=== PATIENT | male | born 2000 | race Caucasian/White ===

== ENCOUNTER 2023-03-09 12:48 | Outpatient (OUT) | payer BC, SELFPAY ==
--- NOTE | 2023-03-09 13:00 | RT_ITS ---
[facility] Test Date: 2023-03-09 Pat Name: Orlando Meier Department: Room: - Gender: Male Vending Machine Collector: Kendra Hays RRT : 2000 Requested By: Claudia Monk Order Number: [id number] Larissa MD: Misael Rodriguez Interpretive Statements Pulmonary function testing was completed according to ATS criteria. Findings were considered accurate and reproducible. Both pre- and post-bronchodilator values utilized for spirometry. Spirometry (based on pre-bronchodilator values): -FEV1/FVC: Low normal @ 73% -FEV1: Mildly reduced @ 80% -FVC: Normal @ 91% -There is a positive bronchodilator response in FEV1. Lung volumes by plethysmography: -RV: Increased @ 158% -TLC: Normal @ 109% Diffusion capacity: -DLCO: High normal @ 132% when corrected for Hb 15g/dL Flow-volume loop: -Mild obstructive pattern Impressions: -Spirometry trends towards a mild obstruction pattern. There is a positive bronchodilator response. An elevated RV suggests air trapping. The diffusion capacity is normal. Overall study trends towards mild asthma. Clinical correlation required. Electronically Signed On 03-13-2023 7:29:58 EST by Misael Rodriguez
[2023-03-09] MEDS: ALBUTEROL SULFATE 2.5 MG/3 ML VIAL NEB IH (13:40)
== END 2023-03-09 12:49 | disposition home or self-care (01) ==
LOC: CARD 12:48
PROVIDERS: PCP Internal Medicine; Visit Provider Nurse Practitioner Family
DX: R06.2 Wheezing (principal); Z86.16 Personal history of COVID-19; R07.89 Other chest pain
CPT/HCPCS: 36415; 85018; 94060; 94726; 94729

== ENCOUNTER 2023-08-12 12:00 | Emergency (ER) | payer BC, SELFPAY ==
[2023-08-12 12:04] VITALS: BP 148/81; PULSE 77; O2SAT 98; BMI 37.6
--- NOTE | 2023-08-12 12:09 | XR_ITS ---
The [address] [address] Patient Name: YENI DENNIS MRN: [id number] date: 2000 Sex: M Assigned Patient Location: ED.MAIN Current Patient Location: Accession/Order Number: [id number] Exam Date: 08/12/2023 12:15 Report Date: 08/12/2023 13:55 At the request of: NATHANAEL LOPEZ Procedure: XR ankle RT min 3V IMAGES REVIEWED: XR ankle RT min 3V COMPARISON: None available. CLINICAL INDICATION: fall FINDINGS/IMPRESSION: 1. No evidence of acute osseous abnormality of the right ankle. 2. Mild lateral ankle soft tissue swelling. 3. Trace degenerative change of the tibiotalar joint. 4. Trace enthesopathic change distal Achilles tendon insertion. Electronically authenticated by: BÁRBARA MEZA Date: 08/12/2023 13:55
[2023-08-12 12:11] VITALS: TEMP 36.5
--- NOTE | 2023-08-12 12:16 | ED.GENADUL1 ---
HPI HPI - General Adult General Chief complaint: Extremity Injury, Lower Stated complaint: LOWER EXTREMITY INJURY Time Seen by Provider: 08/12/23 12:04 Source: patient Mode of arrival: walk-in History of Present Illness HPI narrative: This is a healthy 23 here with a rash. He has noticed this about 3 days ago. He has been taking 50 mg of Benadryl every 12 hours and has not really getting better. He states that this rash moves around different places of his trunk torso and extremities. It is not painful, he has not been sick. He could not identify intake of any food or supplemental products that may have caused it. To his knowledge his parents do not have any allergies. He has not been on any antibiotics. He has not had any swelling in his mouth tongue or oral cavity. He has no wheezing or tightness in his chest. No headache fever or chills or other systemic symptoms he is otherwise healthy. Related Data Home Medications ?Medication ?Instructions ?Recorded ?Confirmed albuterol 90 mcg/actuation aerosol mcg inhalation 08/12/23 inhaler Allergies Allergy/AdvReac Type Severity Reaction Status Date / Time No Known Drug Allergies Allergy Verified 08/12/23 12:07 Opioid HPI Opioid Management Most Recent Opioid Data: No Data to Display Exam Narrative Exam Narrative: Awake alert appears in no distress vital signs are stable. He does have a couple spotty areas about the torso and extremities are slightly raised consistent with an urticarial type lesion. There is no petechiae or purpura. Examining his oral cavity there is no swelling of his lips tongue uvula or palate. His lungs are completely clear with no wheeze rales or rhonchi. There is no indication of secondary cellulitis or infectious process. Constitutional Vital Signs, click to edit/add: Last Vital Signs Temp 97.7 F 08/12/23 12:11 Pulse 77 08/12/23 12:04 Resp 18 08/12/23 12:04 BP 148/81 H 08/12/23 12:04 Pulse Ox 98 08/12/23 12:04 O2 Del Method Room Air 08/12/23 12:04 Course Vital Signs Vital signs: Vital Signs Pulse Rate 77 08/12/23 12:04 Respiratory Rate 18 08/12/23 12:04 Blood Pressure 148/81 H 08/12/23 12:04 Pulse Oximetry 98 08/12/23 12:04 Oxygen Delivery Method Room Air 08/12/23 12:04 Temperature 97.7 F 08/12/23 12:11 Pulse Rate 77 08/12/23 12:04 Respiratory Rate 18 08/12/23 12:04 Blood Pressure 148/81 H 08/12/23 12:04 Pulse Oximetry 98 08/12/23 12:04 Oxygen Delivery Method Room Air 08/12/23 12:04 Medical Decision Making MDM Narrative Medical decision making narrative: This patient presents with 3 days of intermittent rash that moves from different places that is consistent with hives. No airway or pulmonary involvement. Not responding to low-dose Benadryl. We could not identify the real allergen. We will plan to med Back: Discharge Plan Discharge Stand Alone Forms: Portal Instructions Chief Complaint: Extremity Injury, Lower Clinical Impression: Allergic reaction Patient Disposition: Home, Self-Care Time of Disposition Decision: 12:18 Prescriptions / Home Meds: No Action albuterol 90 mcg/actuation aerosol inhalation Print Language: Macedonian Additional Instructions: Avoid heat and hot showers. Take cool baths/Medrol pack/continue Benadryl for 2 days Referrals: Vinh Park DO [Primary Care Provider] - 1 week
--- NOTE | 2023-08-12 12:22 | ED_ITS ---
HPI HPI - Extremity Injury (Lower) General Chief Complaint: Extremity Injury, Lower Stated Complaint: LOWER EXTREMITY INJURY Time Seen by Provider: 08/12/23 12:04 Source: patient and family Mode of arrival: walk-in History of Present Illness HPI Narrative: This patient is here with an injury to his right ankle. His female avaya engineer states that he was horsing around last night he rolled his ankle and is compla ining of pain over his ankle area. He has got a minor abrasion over the knee but does not really have any pain in this area. He has not had previous surgery or fractures to this area. Related Data Home Medications ?Medication ?Instructions ?Recorded ?Confirmed albuterol 90 mcg/actuation aerosol mcg inhalation 08/12/23 inhaler Allergies Allergy/AdvReac Type Severity Reaction Status Date / Time No Known Drug Allergies Allergy Verified 08/12/23 12:07 Opioid HPI Opioid Management Most Recent Pain and Opioid Data: No Data to Display Exam Narrative Exam Narrative: Patient is awake and alert here with his female avaya engineer. He has a very superficial abrasion over his knee. The examination of his ankle shows no discomfort over the lateral malleolus at all. There is no tenderness of the anterior or posterior talofibular ligament. Slight discomfort over the medial deltoid ligament. No discomfort over the Achilles or gastrocnemius. His discomfort is proximal and superior to the lateral malleolus well above the ankle joint. X-rays will be reviewed to make sure they include the distal fi bula area. Constitutional Vital Signs, click to edit/add: Last Vital Signs Temp 97.7 F 08/12/23 12:11 Pulse 77 08/12/23 12:04 Resp 18 08/12/23 12:04 BP 148/81 H 08/12/23 12:04 Pulse Ox 98 08/12/23 12:04 O2 Del Method Room Air 08/12/23 12:04 Course Vital Signs Vital signs: Vital Signs Pulse Rate 77 08/12/23 12:04 Respiratory Rate 18 08/12/23 12:04 Blood Pressure 148/81 H 08/12/23 12:04 Pulse Oximetry 98 08/12/23 12:04 Oxygen Delivery Method Room Air 08/12/23 12:04 Temperature 97.7 F 08/12/23 12:11 Pulse Rate 77 08/12/23 12:04 Respiratory Rate 18 08/12/23 12:04 Blood Pressure 148/81 H 08/12/23 12:04 Pulse Oximetry 98 08/12/23 12:04 Oxygen Delivery Method Room Air 08/12/23 12:04 Discharge Plan Discharge Chief Complaint: Extremity Injury, Lower Clinical Impression: Ankle sprain and strain Patient Disposition: Home, Self-Care Time of Disposition Decision: 12:18 Prescriptions / Home Meds: No Action albuterol 90 mcg/actuation aerosol inhalation Print Language: Ukrainian Additional Instructions: ice /Rest/elevation no prolonged weightbearing 48 hours Referrals: Vinh Park DO [Physician] - 1 week
--- OUTSIDE RECORDS SUMMARY | 2023-08-12 12:28 | XMS_ITS | CCD ---
Author Organization [facility] Inform ion Partnership [facility] Care Team Providers Care Senior Executive Assistant Name Role Phone TRINI, DR SALAMANCA Primary Care Lissy LOPEZ, DR NATHANAEL Coelho Consulting Elisabet LOPEZ, DR NATHANAEL Coelho Admitting Elisabet LOPEZ, DR NATHANAEL Coelho Attending Elisabet FELIZ, DR SALAMANCA Primary Care Unavailable CHIP, DR RIOS Gibbs Admitting Lissy SAUNDERS, DR RIOS Gibbs Attending Unavailable CHIP, DR RIOS Gibbs Consulting Lissy HAWTHORNE, DR YOON Consulting Unavailable Claudia Monk Unavailable Medications Current Medications Medication Drug Class(es) Dates Sig (Normalized) Sig (Original) [id number] 200 actuat albuterol 0.09 mg/actuat metered dose inhaler (3 sources) beta2-Adrenergic Agonist Start: 03-31-2023 End: 05-23-2023 take 1-2 puff(s) by inhalation every four hours Albuterol Sulfate Active 0 INHALATION Every 4 hours 8.5 30 May 23, 2023 4:11pm 1-2 puffs inhaled every 4 hours Start: 02-09-2023 Albuterol Sulf ate HFA 108 (90 Base) MCG/ACT 1 or 2 puff as needed Inhalation every 4 hrs for 30 day(s) Jan, Active amoxicillin 875 mg / clavulanate 125 mg oral tablet (1 source) Penicillin-class Antibacterial Start: 02-09-2023 take 1 tablet by mouth every twelve hours Amoxicillin-Pot Clavulanate 875-125 MG 1 tablet Orally every 12 hrs for 10 days Jan, Active methylPREDNISolone 4 mg oral tablet (1 source) Corticosteroid Start: 02-09-2023 methylPREDNISolone 4 MG as directed Orally daily for 6 days Jan, Active Problems Active Problems Problem Classification Problem Date Documented Da te Episodic/Chronic Asthma (2 sources) Exercise-induced asthma; Translations: [Exercise induced bronchospasm] 07-18-2023 Chronic Disorders of lipid metabolism (2 sources) Pure hypercholesterole maria luz; Translations: [Familial hypercholesterole maria luz] 03-31-2023 Chronic Nonspecific chest pain (1 source) Other chest pain Episodic Other lower respiratory disease (1 source) Wheezing Episodic Other upper respiratory infections (1 source) Chronic sinusitis, unspecified; Translations: [CHRONIC SINUSITIS UNSPECIFIED] Onset: 09-24-2021 Chronic Other upper respiratory infections (6 sources) Acute pharyngitis, unspecified; Translations: [Acute laryngitis] Onset: 09-23-2021 Episodic Unclassified (1 source) CONTACT W/AND (SUSP) EXPOS COVID-19; Translations: [CONTACT W/AND (SUSP) EXPOS COVID-19] Onset: 09-24-2021 Past or Other Problems Problem Classification Problem Date Documented Da te Episodic/Chronic Unclassified (1 source) History of COVID-19 Z86.16 Results Test Name Value Interpretation Reference Range Facil ity STREPT SCREENon 02-20-2022 STREP SCREEN A Positive Abnormal NEGATIVE [facility] Comment on above: Performed By: #### SSCRN #### [facility] [address] [place] [address] Dr. Henrique Barron Covid-19 PCR (CVDTBH)on SARS-CoV-2 (COVID-19) RNA SHANTELL+probe Ql (Unsp spec) Not detected Normal NOT DETECTED [facility] Comment on above: Result Comment: When diagnostic testing is negative, the possibility of a false negative should be considered in the context of a patient's recent exposures and the presence of clinical signs and symptoms consistent with SARS-CoV-2. This test is not yet approved or cleared by the [place] FDA. When there are no FDA-approved or cleared tests available, and other criteria are met, FDA can make tests available under an emergency access mechanism called an Emergency Use Authorization (EUA). The EUA for this test is supported by the [employer] Worker of Health and Human Service's declaration that circumstances exist to justify the emergency use of in vitro diagnostics for the detection and/or diagnosis of the virus that causes COVID-19. This EUA will remain in effect for the duration of the COVID-19 declaration justifying emergency of IVDs, unless it is terminated or revoked by the FDA (after which the test may no longer be used). Performed By: #### C VDTBH #### [facility] [address] [place], [place] [address] Dr. Henrique Barron GROUP A STREP CULTUREon S. pyogenes Ag Ql (Unsp spec) Culture Observations: NEGATIVE FOR GROUP A STREPTOCOCCUS. Normal [facility] Comment on above: Performed By: #### GRASTCX, SSCRN #### [facility] [address] [place], [place] [address] Dr. Henrique Barron STREPT SCREENon 09-23-2021 STREP SCREEN A Negative Normal NEGATIVE [facility] Comment on above: Performed By: #### GRASTCX, SSCRN #### [facility] [address] [place], [place] [address] Dr. Henrique Barron COVID19(IDNOW)on 09-17-2021 SARS-CoV-2 (COVID-19) RNA SHANTELL+probe Ql (Unsp spec) Not detected Normal NOT DETECTED [facility] Comment on above: Order Comment: Is this test for diagnosi s or screening?->Diagnosis of ill patient Saline media preferred given current shortage of viral transport media but both acceptable Result Comment: ID N OW COVID 19 is an automated assay that utilizes isothermal nucleic acid amplification technology for the qualitative detection of SARS-CoV-2 viral nucleic acids. \X0D0A\X0D0A\Negative results should be treated as presumptive and should be tested with different authorized or cleared molecular tests if necessary to manage patient signs and symptoms.\X0D0A\X0D0A\[id number] is generally detectable in respiratory samples during the acute phase of infection (often within 1st 7 days of the onset of symptoms). Positive results are indicative of the presence of [id number]-[id number]. Positive results do not rule out bacterial infection or co-infection with other viruses. Performed By: #### [id number] #### [place] [address] Ph. [phone] COVID19(IDNOW)on 12-07-2020 SARS-CoV-2 (COVID-19) RNA SHANTELL+probe Ql (Unsp spec) Detected Critically abnormal NOT DETECTED [facility] Comment on above: Order Comment: Is this test for diagnosi s or screening?->Diagnosis of ill patient Saline media preferred given current shortage of viral transport media but both acceptable Result Comment: Argenis ical Result called to Gege on 12/07/2020 at 3:14 PM by LISA RIVERA. Results were read back to caller. (COVID) ID NOW COVID 19 is an automated assay that utilizes isothermal nucleic acid amplification technology for the qualitative detection of SARS-CoV-2 viral nucleic acids. \X0D0A\X0D0A\Negative results should be treated as presumptive and should be tested with different authorized or cleared molecular tests if necessary to manage patient signs and symptoms.\X0D0A\X0D0A\XRXZ-[id number] is generally detectable in respiratory samples during the acute phase of infection (often within 1st 7 days of the onset of symptoms). Positive results are indicative of the presence of FFFA-UgM-1RFE. Positive results do not rule out bacterial infection or co-infection with other viruses. Performed By: #### [id number] #### [place] [address] Ph. [phone] Vital Signs Date Time Vital Sign Value Performing Clinician Facility 07-18-2023 09:14-0400 Body height 172.72 cm [facility] 07-18-2023 09:14-0400 Body mass index (BMI) [Ratio] 37.7 kg/m2 [facility] 07-18-2023 09:14-0400 Body weight 112.49 kg [facility] 07-18-2023 09:14-0400 Diastolic blood pressure 72 mm[Hg] [facility] 07-18-2023 09:14-0400 Heart rate 74 /min [facility] 07-18-2023 09:14-0400 SaO2% (BldA) [Mass fraction] 98 % [facility] 07-18-2023 09:14-0400 Systolic blood pressure 110 mm[Hg] [facility] 02-09-2023 09:30-0500 Body height 172.72 cm Claudia Mokn Other [facility] Other 02-09-2023 09:30-0500 Body mass index (BMI) [Ratio] 37.86 kg/m2 Claudia Monk Other [facility] Other 02-09-2023 09:30-0500 Body weight 112.95 kg Claudia Monk Other [facility] Other 02-09-2023 09:30-0500 Diastolic blood pressure 84 mm[Hg] Claudia Monk Other [facility] Other 02-09-2023 09:30-0500 SaO2% (BldA) [Mass fraction] 99 % Claudia Monk Other [facility] Other 02-09-2023 09:30-0500 Systolic blood pressure 120 mm[Hg] Claudia Monk Other [facility] Other Encounters Encounter Date Encounter Type Care Provider Facility Start: 07-18-2023 Patient encounter status [facility] Start: 07-18-2023 End: 07-18-2023 ambulatory [facility] Work Phone: Start: 07-18-2023 End: 07-18-2023 Encounter for general adult medical examination without abnormal findings [facility] Start: 07-18-2023 End: 07-18-2023 Patient encounter procedure [facility] Work Phone: Start: 02-09-2023 End: 02-09-2023 ambulatory Claudia Monk Other [facility] Other Start: 02-09-2023 Office outpatient ne w 30 minutes Claudia Monk [facility] Start: 02-20-2022 End: 02-20-[address] CHEIKH FELIZ Facility:[facility] Start: 09-23-2021 End: 09-23-[address] CHEIKH FELIZ Facility:[facility] Payers Date Payer Category Payer Unknown [id number] 2000 Unknown [id number] 1961 Unknown [id number] Unknown [id number] Social History Date Type Detail Facility Sex Assigned At [facility] Other Start: 07-18-2023 Tobacco smoking stat [facility] Never smoked tobacco (finding) [facility] Start: 2000 Sex Assigned At Male [facility] Evaluation note 02-09-2023 Note Date & Type Note Facility 02-09-2023 Evaluation note Encounter Date Diagnosis Assessment Notes Jan, Wheezing (ICD-10 - R06.2) Discussed symptoms with pt and will proceed with further testing-- pulmonary function test ordered and will call with results and further recommendations. The Albuterol/Ventol in/Proair is your RESCUE inhaler. This is the inhaler you use to RESCUE you for wheezing or Shortness of breath. You can also use this BEFORE you do something that you know is going to make you short of breath, harriett climbing stairs or exercising. If you regularly need this 3-4 times a day, you need to let me know. It is likely time to add more medications or treatments. Discussed that this should not be uses more than 2 times per week. Jan, History of COVID-19 (ICD-10 - Z86.16) Jan, Chest tightness (ICD-10 - R07.89) Jan, Acute non-recurrent maxillary sinusitis (ICD-10 - J01.00) Will tx tody for bacterial sinusitis based on physical exam and duration of symptoms. Take antibiotic as prescribed, complete entire course of therapy even if symptoms resolve. Take Flonase as directed. Supportive care as directed, push fluids and rest, Tylenol/Motrin as directed for aches/fever, warm moist compress over sinuses several times a day, cool mist humidifier, nasal saline spray as directed. Symptoms should improve in the next 3 days, if symptoms persist follow up. Immediate eval for warning s/sx as discussed. Patient verbalizes understanding and is agreeable to treatment plan. Jan, Laryngitis (ICD-10 - J04.0) Symptoms of laryngitis are most often caused by viruses. Salt water gargles may help with discomfort. RX sent. Take medications as directed. Take medication as prescribed. Complete all doses of medication, even if sx are no longer present. Pt instructed to take medication with food. Informed pt that medication may make pt feel jittery, hungry and give you extra energy. Medication may also increase blood pressure and increase blood sugar. Pt also advised not to take NSAIDs while using steroids.Follow up if symptoms persist or worsen. Patient verbalized understanding and agreement with treatment plan. [facility] Other Evaluation note Note Date & Type Note Facility Evaluation note Diagnosis Onset Date Exercise-induced asthma acut e Wellness examination [facility] Work Phone: History general Narrative - Reported Note Date & Type Note Facility History general Narrative - Reported Type Medical History Hyperlipidemia type II Surgical History No Surgical history information [facility] Other Summary Purpose Family History Relationship Condition Age at Onset Recorded Date/T melisa father Hypertension Unknown Heart disease Unknown Unknown Not Specified Malignant neoplasm Unknown Advance Directives Advance Directive Response Recorded Date/ Time Advance Directives No March 13, 2023 1:12pm Chief Complaint and Reason for Visit Chief Complaint PHYSICAL FOR POLICE ACEDAMY Reason for Visit Exercise-induced ast hma Wellness examination Additional Source Comments (unrecognized sect ion and content) No Status Records FoundNo Status Records Found INFORMATION SOURCE (unrecogn ized section and content) DATE CREATED AUTHOR 09/21/2021 [facility] DATE CREATED AUTHOR 'S MAIA ATION 02/20/2022 [facility] REASON FOR VISIT (unrecogniz ed section and content) New/Old Patient-Sinuses Care Teams (unrecognized sec tion and content) Team Status: Active Member Role Status Dates Claudia Monk APRN MOBILITY DEVELOPER-C Primary Care Provider Active Team Status: Inactive Member Role Status Dates Claudia LANDY Monk MOBILITY DEVELOPER-C Primary Care Provider, Attending Provider Active Start: July 18, 2023 End: July 18, 2023 Goals (unrecognized section and content) Goals may be documented in a n alternate section FOR RECORDS PERTAINING TO PATIENTS WHO ARE OR HAVE BEEN ENROLLED IN A CHEMICAL DEPENDENCY/SUBSTANCEABUSE PROGRAM, SOME INFORMATION MAY BE OMITTED. This clinical summary was aggregated from multiple sources. Caution should be exercised in using it in the provision of clinical care. This summary normalizes information from multiple sources, and as a consequence, information in this document may materially change the coding, format and clinical context of patient data. In addition, data may be omitted in some cases. CLINICAL DECISIONS SHOULD BE BASED ON THE PRIMARY CLINICAL RECORDS. [employer] provides no warranty or guarantee of the accuracy or completeness of information in this document.
== END 2023-08-12 12:50 | disposition home or self-care (01) ==
PROVIDERS: Emergency Provider Emergency Medicine Emergency Medical Services; PCP Family Medicine
DX: S93.401A Sprain of unspecified ligament of right ankle, initial encounter (principal); S96.911A Strain of unspecified muscle and tendon at ankle and foot level, right foot, initial encounter; X50.9XXA Other and unspecified overexertion or strenuous movements or postures, initial encounter; Y93.83 Activity, rough housing and horseplay
CPT/HCPCS: 73610; 99283

== ENCOUNTER 2024-01-24 06:56 | Emergency (ER) | payer BC, SELFPAY ==
[2024-01-24] VITALS (17 sets, daily range): BP systolic 118–134; BP diastolic 75–78; PULSE 110–111; TEMP 37; O2SAT 93–99; BMI 36.5
--- OUTSIDE RECORDS SUMMARY | 2024-01-24 07:12 | XMS_ITS | CCD ---
Author Organization [facility] Inform ion Partnership [facility] Care Team Providers Care Nursing Associate Name Role Phone TRINI, DR SALAMANCA Primary Care Lissy LOPEZ, DR NATHANAEL Coelho Consulting Elisabet LOPEZ, DR NATHANAEL Coelho Admitting Elisabet LOPEZ, DR NATHANAEL Coelho Attending Elisabet FELIZ, DR SALAMANCA Primary Care Unavailable CHIP, DR RIOS Gibbs Admitting Lissy SAUNDERS, DR RIOS Gibbs Attending Unavailable CHIP, DR RIOS Gibbs Consulting Lissy HAWTHORNE, DR YOON Consulting Unavailable Claudia Monk Unavailable [phone] Medications Current Medications Medication Drug Class(es) Dates Sig (Normalized) Sig (Original) [id number] 200 actuat albuterol 0.09 mg/actuat metered dose [...] STREP SCREEN A Positive Abnormal NEGATIVE [facility] Comment on above: Performed By: #### SSCRN #### [facility] [address] [place] [address] Dr. Henrique Barron Covid-19 PCR (CVDTBH)on SARS-CoV-2 (COVID-19) RNA SHANTELL+probe Ql (Unsp spec) Not detected Normal NOT DETECTED [facility] Comment on above: Result Comment: When diagnostic [...] for this test is supported by the Signal Tower Operator of Health and Human Service's declaration that [...] used). Performed By: #### C VDTBH #### [facility] [address], [place] [address] Dr. Henrique Barron GROUP A STREP CULTUREon S. pyogenes Ag Ql (Unsp spec) Culture Observations: NEGATIVE FOR GROUP A STREPTOCOCCUS. Normal [facility] Comment on above: Performed By: #### GRASTCX, SSCRN #### [facility] [address], [place] [address] Dr. Henrique Barron STREPT SCREENon 09-23-2021 STREP SCREEN A Negative Normal NEGATIVE [facility] Comment on above: Performed By: #### GRASTCX, SSCRN #### [facility] [address], [place] [address] Dr. Henrique Barron COVID19(IDNOW)on 09-17-2021 SARS-CoV-2 (COVID-19) RNA SHANTELL+probe Ql (Unsp spec) Not detected Normal NOT DETECTED [facility] Comment on above: Order Comment: Is this [...] if necessary to manage patient signs and symptoms.\[id number] is generally detectable in respiratory samples during the acute phase of infection (often within 1st 7 days of the onset of symptoms). Positive results are indicative of the presence of [id number]. Positive results do not rule out bacterial infection or co-infection with other viruses. Performed By: #### [id number] #### [place] [address] Ph. [phone] COVID19(IDNOW)on 12-07-2020 SARS-CoV-2 (COVID-19) RNA SHANTELL+probe Ql (Unsp spec) Detected Critically abnormal NOT DETECTED [facility] Comment on above: Order Comment: Is this [...] if necessary to manage patient signs and symptoms.\[id number] is generally detectable in respiratory samples during the acute phase of infection (often within 1st 7 days of the onset of symptoms). Positive results are indicative of the presence of [id number]. Positive results do not rule out bacterial infection or co-infection with other viruses. Performed By: #### [id number] #### [place] [address] Ph. [phone] Vital Signs Date Time Vital Sign Value Performing Clinician Facility 07-18-2023 09:14-0400 Body height 172.72 cm [facility] 07-18-2023 09:14-0400 Body mass index (BMI) [Ratio] 37.7 kg/m2 [facility] 07-18-2023 09:14-0400 Body weight 112.49 kg [facility] 07-18-2023 09:14-0400 Diastolic blood pressure 72 mm[Hg] [facility] 07-18-2023 09:14-0400 Heart rate 74 /min [facility] 07-18-2023 09:14-0400 SaO2% (BldA) [Mass fraction] 98 % [facility] 07-18-2023 09:14-0400 Systolic blood pressure 110 mm[Hg] [facility] 02-09-2023 09:30-0500 Body height 172.72 cm Claudia Monk Other [facility] Other 02-09-2023 09:30-0500 Body mass index (BMI) [Ratio] 37.86 kg/m2 Claudia Monk Other [facility] Other 02-09-2023 09:30-0500 Body weight 112.95 kg Claudia Monk Other [facility] Other 02-09-2023 09:30-0500 Diastolic blood pressure 84 mm[Hg] Claudia Monk Other [facility] Other 02-09-2023 09:30-0500 SaO2% (BldA) [Mass fraction] 99 % Claudia Monk Other [facility] Other 02-09-2023 09:30-0500 Systolic blood pressure 120 mm[Hg] Claudia Monk Other [facility] Other Encounters Encounter Date Encounter Type Care Provider Facility Start: 07-18-2023 Patient encounter status [facility] Start: 07-18-2023 End: 07-18-2023 ambulatory [facility] Work Phone: Start: 07-18-2023 End: 07-18-2023 Encounter for general adult medical examination without abnormal findings [facility] Start: 07-18-2023 End: 07-18-2023 Patient encounter procedure [facility] Work Phone: Start: 02-09-2023 End: 02-09-2023 ambulatory Claudia Monk Other [facility] Other Start: 02-09-2023 Office outpatient ne w 30 minutes Claudia Monk [facility] Start: 02-20-2022 End: 02-20-[address] CHEIKH FELIZ Facility:[facility] Start: 09-23-2021 End: 09-23-[address] CHEIKH FELIZ Facility:[facility] Payers Date Payer Category Payer Unknown [id number] 2000 Unknown [id number] 1961 Unknown [id number] Unknown [id number] Social History Date Type Detail Facility Sex Assigned At [facility] Other Start: 07-18-2023 Tobacco smoking stat [facility] Never smoked tobacco (finding) [facility] Start: 2000 Sex Assigned At Male F [facility] Evaluation note 02-09-2023 Note Date & Type [...] verbalized understanding and agreement with treatment plan. [facility] Other Evaluation note Note Date & Type Note Facility Evaluation note Diagnosis Onset Date Exercise-induced asthma acut e Wellness examination [facility] Work Phone: History general Narrative - Reported Note Date & Type Note Facility History general Narrative - Reported Type Medical History Hyperlipidemia type II Surgical History No Surgical history information [facility] Other Summary Purpose Family History Relationship Condition [...] section and content) DATE CREATED AUTHOR 09/21/2021 [facility] DATE CREATED AUTHOR 'S MAIA ATION 02/20/2022 [facility] REASON FOR VISIT (unrecogniz ed section and content) New/Old Patient-[facility] Care Teams (unrecognized sec tion and content) Team Status: Active Member Role Status Dates Claduia Monk APRN TOOLROOM CLERK-C Primary Care Provider Active Team Status: Inactive Member Role Status Dates Claudia LANDY Monk TOOLROOM CLERK-C Primary Care Provider, Attending Provider Active Start: [...] BE BASED ON THE PRIMARY CLINICAL RECORDS. [employer] provides no warranty or guarantee of the accuracy or completeness of information in this document.
--- NOTE | 2024-01-24 07:19 | XR_ITS ---
The [address] [address] Patient Name: YENI DENNIS MRN: [id number] date: 2000 Sex: M Assigned Patient Location: ER Current Patient Location: ER Accession/Order Number: [id number] Exam Date: 01/24/2024 08:00 Report Date: 01/24/2024 08:10 At the request of: RK AMADOR Procedure: XR chest 2V EXAMINATION: XR chest 2V HISTORY: cough COMPARISON: No relevant comparison available. TECHNIQUE: PA and lateral FINDINGS: LUNGS: No significant pulmonary parenchymal abnormalities. VASCULATURE: No increased pulmonary vasculature. PLEURA: No pneumothorax, effusion, or pleural thickening. CARDIAC: No cardiomegaly or cardiac silhouette abnormality. MEDIASTINUM: No visible mass or adenopathy. BONES: No fracture or visible bone lesion. OTHER: Negative. XR/XR chest 2V IMPRESSION: No acute cardiopulmonary process Electronically authenticated by: TRAN WEAVER Date: 01/24/2024 08:10
[2024-01-24 07:34] LABS: Internal Control Within Normal Limits; Strep A Antigen Screen Negative
[2024-01-24 07:36] LABS: Internal Control Within Normal Limits; SARS-CoV-2 Ag NEGATIVE (NEGATIVE)
[2024-01-24] MEDS: KETOROLAC TROMETHAMINE 30 MG/ML VIAL IVP (07:36)
[2024-01-24] MEDS: DEXAMETHASONE SOD PHOS 10 MG/ML VIAL PO (07:36)
[2024-01-24] MEDS: 0.9 % SODIUM CHLORIDE 1,000 ML 1000 ML IV (07:37)
[2024-01-24] MEDS: IPRATROPIUM/ALBUTEROL SULFATE 3 ML AMPUL.NEB IH ×2 (07:37→08:53)
[2024-01-24 07:42] LABS: Influenza Virus A Antigen Negative; Influenza Virus B Antigen Negative; Internal Control Within Normal Limits
[2024-01-24 07:50] LABS: Basophils Absolute Auto 0.1 10^3/uL (0.0-0.1); Basophils Percent Auto 0.5 % (0.2-2.0); Eosinophils Absolute Auto 0.9 10^3/uL (0.0-0.7); Eosinophils Percent Auto 6.8 % (0.9-7.0); Hematocrit 45.5 % (42.0-54.0); Hemoglobin 15.7 g/dL (14.0-18.0); Immature Granulocytes Abs Auto 0.05 10^3/uL (0.00-0.03); Immature Granulocytes Pct Auto 0.4 % (0.0-0.5); Lymphocytes Absolute Auto 1.4 10^3/uL (1.2-3.8); Lymphocytes Percent Auto 10.3 % (20.5-60.0); Mean Corpuscular HGB Conc 34.5 g/dL (29.9-35.2); Mean Corpuscular Hemoglobin 28.7 pg (25.9-34.0); Mean Corpuscular Volume 83.2 fL (80.0-94.0); Mean Platelet Volume 10.6 fL (9.5-13.5); Monocytes Absolute Auto 1.3 10^3/uL (0.3-0.8); Monocytes Percent Auto 9.6 % (1.7-12.0); Neutrophils Absolute Auto 9.6 10^3/uL (1.4-6.5); Neutrophils Percent Auto 72.4 % (43.0-75.0); Platelet Count 248 10^3/uL (150-450); Red Blood Count 5.47 10^6/uL (4.70-6.10); Red Cell Distribution Width 13.1 % (11.0-15.0); White Blood Count 13.3 10^3/uL (4.0-11.0)
[2024-01-24 08:03] LABS: Alanine Aminotransferase 27 U/L (16-63); Albumin Globulin Ratio 0.9; Albumin Level 3.7 g/dL (3.4-5.0); Alkaline Phosphatase 79 U/L (46-116); Anion Gap 14.7; Aspartate Amino Transferase 16 U/L (15-37); BUN Creatinine Ratio 10.9; Bilirubin Total 0.7 mg/dL (0.2-1.0); Calcium 8.6 mg/dL (8.5-10.1); Carbon Dioxide 27.4 mmol/L (21.0-32.0); Chloride 107 mmol/L (98-107); Estimated GFR (African America >60 (>=60 mL/min/1.73m^2); Estimated GFR (Non-African Ame >60 (>=60 mL/min/1.73m^2); Globulin 3.9 g/dL; Glucose 93 mg/dL (74-106); Potassium 4.1 mmol/L (3.5-5.1); Sodium 145 mmol/L (136-145); Total Protein 7.6 g/dL (6.4-8.2)
--- NOTE | 2024-01-24 12:04 | ED.URI1 ---
HPI - URI/Sore Throat General Chief Complaint: Upper Respiratory Infection Stated Complaint: CHEST PAIN/URTI COMPLAINTS Time Seen by Provider: 01/24/24 07:13 Source: patient Limitations: no limitations History of Present Illness HPI Narrative: Patient presents to ED complaining of wheezing cough and mild sore throat. He has had this going on for a few days but it was worse today. He said last week on Monday he had a gastroenteritis type of illness where he was unable to keep much down for a day. He said he seemed to get better from that and then this Monday started coming down with cough congestion sore throat and some wheezing. Patient was not hypoxic on arrival, no fever. He is coughing and coughing some things up. Alert and oriented no acute distress. Related Data Home Medications ?Medication ?Instructions ?Recorded ?Confirmed albuterol 90 mcg/actuation aerosol mcg inhalation 08/12/23 inhaler Previous Rx's ?Medication ?Instructions ?Recorded azithromycin 500 mg tablet See Rx Instructions PO .COMPLEX #3 01/24/24 (Zithromax TRI-LUIS MANUEL) tabs ipratropium 0.5 mg-albuterol 3 mg 3 ml inhalation Q6H PRN wheezing 01/24/24 (2.5 mg base)/3 mL nebulization #90 mL soln Allergies Allergy/AdvReac Type Severity Reaction Status Date / Time No Known Drug Allergies Allergy Verified 01/24/24 07:09 Review of Systems ROS Status of ROS 10 or more systems reviewed and unremarkable except as noted in history and below PFSH PFSH Social History Little interest or pleasure in doing things: not at all Feeling down, depressed, or hopeless: not at all Exam Narrative Exam Narrative: Time Seen: [] Vital Signs: [Per nurse's notes.] General: [Alert] Skin: [Warm, dry, no rash.] Head: [Normocephalic, atraumatic.] Neck: [Supple, trachea midline.] Eye: [Pupils are equal, round and reactive to light, extraocular movements are intact, normal conjunctiva.] Ears, nose, mouth and throat: oral mucosa moist. Cardiovascular: Tachycardia upon arrival no murmur.] Respiratory: [Inspiratory expiratory wheezing bilaterally. No severe respiratory distress. Chest wall: [No tenderness, no deformity.] Gastrointestinal: [Soft, nontender, non distended, normal bowel sounds.] MSK: 5 out of 5 muscle strength x 4 extremities no calf pain or edema Lymphatics: [No lymphadenopathy.] Psychiatric: [Cooperative, appropriate mood & affect.] Neurological: [Alert and oriented to person, place, time, and situation, no focal neurological deficit observed.] Constitutional Vital Signs, click to edit/add: Last Vital Signs Temp 98.6 F 01/24/24 07:03 Pulse 111 H 01/24/24 10:38 Resp 20 01/24/24 10:38 BP 118/75 01/24/24 08:07 Pulse Ox 96 01/24/24 10:38 O2 Del Method Room Air 01/24/24 10:38 Course Vital Signs Vital signs: Vital Signs Temperature 98.6 F 01/24/24 07:03 Pulse Rate 110 H 01/24/24 07:03 Respiratory Rate 24 H 01/24/24 07:03 Blood Pressure 134/78 01/24/24 07:03 Pulse Oximetry 94 L 01/24/24 07:03 Temperature 98.6 F 01/24/24 07:03 Pulse Rate 111 H 01/24/24 10:38 Respiratory Rate 20 01/24/24 10:38 Blood Pressure 118/75 01/24/24 08:07 Pulse Oximetry 96 01/24/24 10:38 Oxygen Delivery Method Room Air 01/24/24 10:38 MDM - URI/Sore Throat MDM Narrative Medical decision making narrative: Patient's chest x-ray does not show acute pneumonia however he has been coughing up green and bloody tinged sputum. He was tachycardic on arrival but that improved with fluids. He is feeling better after 2 breathing treatments. He was feeling better after the initial breathing treatment but was still wheezing and he was sitting around 91% on room air. After second treatment he felt even better and was up to 96% on room air. He was given Decadron here in ED. I also wrote him a prescription for a nebulizer machine and DuoNeb treatments for home. Patient will be sent home on azithromycin. Return to ED if worsening shortness of breath fever vomiting or any difficulty breathing. Follow-up with family doctor. Patient requested a work note and was given off the rest of this week, return Monday no restrictions as long as he is better. Patient comfortable care plan for home. Differential Diagnosis Differential diagnosis: Likely upper respiratory infection, sinusitis, viral infection, bronchitis, influenza and pharyngitis Lab Data Attestation: I reviewed the patient's lab results. Labs: Lab Results 01/24/24 01/24/24 Range/Units 07:15 07:30 WBC 13.3 H (4.0-11.0) 10^3/uL RBC 5.47 (4.70-6.10) 10^6/uL Hgb 15.7 (14.0-18.0) g/dL Hct 45.5 (42.0-54.0) % MCV 83.2 (80.0-94.0) fL MCH 28.7 (25.9-34.0) pg MCHC 34.5 (29.9-35.2) g/dL RDW 13.1 (11.0-15.0) % Plt Count 248 (150-450) 10^3/uL MPV 10.6 (9.5-13.5) fL Neut % (Auto) 72.4 (43.0-75.0) % Lymph % (Auto) 10.3 L (20.5-60.0) % Callaway % (Auto) 9.6 (1.7-12.0) % Eos % (Auto) 6.8 (0.9-7.0) % Baso % (Auto) 0.5 (0.2-2.0) % Neut # (Auto) 9.6 H (1.4-6.5) 10^3/uL Lymph # (Auto) 1.4 (1.2-3.8) 10^3/uL Callaway # (Auto) 1.3 H (0.3-0.8) 10^3/uL Eos # (Auto) 0.9 H (0.0-0.7) 10^3/uL Baso # (Auto) 0.1 (0.0-0.1) 10^3/uL Abs Immat Gran (auto) 0.05 H (0.00-0.03) 10^3/uL Imm/Tot Granulo (auto) 0.4 (0.0-0.5) % Sodium 145 (136-145) mmol/L Potassium 4.1 (3.5-5.1) mmol/L Chloride 107 (98-107) mmol/L Carbon Dioxide 27.4 (21.0-32.0) mmol/L Anion Gap 14.7 BUN 12.0 (7.0-18.0) mg/dL Creatinine 1.10 (0.70-1.30) mg/dL Est GFR ( Amer) >60 (>=60 mL/min/1.73m^2) Est GFR (Non-Af Amer) >60 (>=60 mL/min/1.73m^2) BUN/Creatinine Ratio 10.9 Glucose 93 (74-106) mg/dL Calcium 8.6 (8.5-10.1) mg/dL Total Bilirubin 0.7 (0.2-1.0) mg/dL AST 16 (15-37) U/L ALT 27 (16-63) U/L Alkaline Phosphatase 79 (46-116) U/L Total Protein 7.6 (6.4-8.2) g/dL Albumin 3.7 (3.4-5.0) g/dL Globulin 3.9 g/dL Albumin/Globulin Ratio 0.9 Influenza Type A Ag Negative Influenza Type B Ag Negative SARS-CoV-2 Ag (CV2AG) Negative (NEGATIVE) Streptococcus Screen Negative Imaging Data Chest x-ray: Radiologist's impression: ITS Impressions Chest X-Ray 01/24/24 07:19 IMPRESSION: No acute cardiopulmonary process Electronically authenticated by: TRAN WEAVER Date: 01/24/2024 08:10 Critical Care Time Critical Care Time Critical Care Time: Yes Total Critical Care Time: 62 Attestation: Mild respiratory distress, wheezing, multiple breathing treatments Discharge Plan Discharge Chief Complaint: Upper Respiratory Infection Clinical Impression: Bronchitis Patient Disposition: Home, Self-Care Time of Disposition Decision: 10:21 Condition: Good Mode of Transportation: Private Vehicle Prescriptions / Home Meds: New azithromycin [Zithromax TRI-LUIS MANUEL] 500 mg tablet See Rx Instructions .ROUTE .COMPLEX Qty: 3 0RF Rx Instructions: For 250 mg dose pack: take 500 mg today (day 1), then 250 mg for 4 days (days 2-5) dispense a normal Zpak please ipratropium-albuterol 0.5 mg-3 mg(2.5 mg base)/3 mL solution for nebulization 3 ml inhalation Q6H PRN (Reason: wheezing) Qty: 90 0RF No Action albuterol 90 mcg/actuation aerosol inhalation Print Language: Romanian Instructions: Acute Bronchitis (ED) Referrals: BRITNEY EDMONDSON [Primary Care Provider] - 1 week Discharge Date/Time: 01/24/24 10:39
== END 2024-01-24 10:39 | disposition home or self-care (01) ==
PROVIDERS: Emergency Provider Emergency Medicine; PCP Family Medicine
DX: J40 Bronchitis, not specified as acute or chronic (principal)
CPT/HCPCS: 36415; 71046; 80053; 85025; 87070; 87502; 87804; 87811; 87880; 94640; 94667; 96374; 99285; J1100; J1885